=== PATIENT | female | born 1990 | race Two or more races ===

== ENCOUNTER 2016-08-27 15:50 | Emergency (ER) | payer OTHER ==
[~2016-08-27] VITALS: Ht 162.6 cm; Wt 64.0 kg
[~2016-08-27 15:50] MED LIST: Colace PO; DEPO-PROVER150 MG/ML IM; FERROCITE324 MG PO; HYDROCODON-ACE1 EAC7 PO; IBUPROFEN800 MG PO; IRON18 MG PO; KEFLEX500 MG PO; Motrin PO; PERCOCET 5/31 TABLET PO; PRENATAL TABLE1 EAC3 PO; TYLENOL EXTRA500 MG PO; TYLENOL REGULA325 MG PO; Vitron-C,Hematogen,F PO
[2016-08-27 16:16] LABS: ADD MIUA? YES; BILIRUBIN NEGATIVE; BLOOD NEGATIVE; COLOR YELLOW ((YELLOW)); GLUCOSE (STRIP) NEGATIVE; KETONES 5; LEUKOCYTES NEGATIVE; NITRITE NEGATIVE; PROTEIN (STRIP) NEGATIVE; UROBILINOGEN 0.2 MG/DL (0.2-1.0)
[2016-08-27 16:24] LABS: BACTERIA RARE /HPF; EPITHELIAL CELLS 1+ /HPF; MUCUS 3+ /LPF; UCUL ADDED? NO
[2016-08-27 17:17] LABS: INTERNAL CONTROL VALID? YES
[2016-08-27] MEDS ORDERED: PYRIDIUM200 MG PO (17:32)
[2016-08-27] MEDS ORDERED: KEFLEX500 MG PO (17:32)
[2016-08-27 18:08] VITALS: BP 119/79
== END 2016-08-27 18:12 | disposition home or self-care (01) ==
LOC: EME 15:50
DX: N39.0 Urinary tract infection, site not specified (principal); Z87.440 Personal history of urinary (tract) infections; F17.200 Nicotine dependence, unspecified, uncomplicated
CPT/HCPCS: 81003; 84703; 87077; 87086; 87186; 99281; 99284